=== PATIENT | male | born 1930 | race Caucasian/White ===

== ENCOUNTER 2020-08-06 08:37 | Emergency (ER) | payer MEDICARE ==
[~2020-08-06] VITALS: Ht 170.2 cm; Wt 79.4 kg
[~2020-08-06 08:37] MED LIST: AMLO2.5T2 PO; BENA20TA9 PO; FINA5TAB11 PO; SIMV-46 PO; TAMS-3 PO
--- NOTE | 2020-08-06 08:59 | NUR ---
Pt presents to ER with c/o of bilateral leg cramps, states he had surgery here on 07/31/20 and he called his doctor and his doctor instructed him to be seen. Placed in RM 4B, No acute distress. Denies chest pain and SOB, pt noted with afib on monitor. Pt has hx of AFIB. made aware.
[2020-08-06] MEDS ORDERED: ACETAMINOPHEN 325 MG TABLET PO ONE (09:15)
[2020-08-06] MEDS ORDERED: ACETAMINOPHEN 325 MG TABLET ONE (09:16)
--- NOTE | 2020-08-06 09:35 | NUR ---
Per Dr. Cano pt stable for discharge. dc instructions given and reviewed with pt. Verbalized understanding. Left ER in stable condition, with steady gait.
== END 2020-08-06 09:50 | disposition home or self-care (01) ==
LOC: ER 08:37
DX: M79.662 Pain in left lower leg (principal); I10 Essential (primary) hypertension; I48.91 Unspecified atrial fibrillation; E78.5 Hyperlipidemia, unspecified; K21.9 Gastro-esophageal reflux disease without esophagitis; Z88.2 Allergy status to sulfonamides; Z79.899 Other long term (current) drug therapy
CPT/HCPCS: 93005; A4663